=== PATIENT | male | born 1955 | race African-American/Black ===

== ENCOUNTER → 2016-11-28 | Outpatient (CLI) | payer OTHER | LOC: RAD 08:07 | PROVIDERS: ATTEND Family Medicine | DX: R10.31 Right lower quadrant pain (principal); R31.9 Hematuria, unspecified; N28.89 Other specified disorders of kidney and ureter | CPT/HCPCS: 74178; Q9967 ==

== ENCOUNTER → 2016-12-05 | Outpatient (CLI) | payer OTHER | LOC: RAD 07:08 | PROVIDERS: ATTEND Family Medicine | DX: N28.89 Other specified disorders of kidney and ureter (principal); N28.1 Cyst of kidney, acquired | CPT/HCPCS: 76770 ==

== ENCOUNTER → 2016-12-14 | Outpatient (CLI) | payer OTHER | LOC: RAD 06:52 | PROVIDERS: ATTEND Family Medicine | DX: Z53.8 Procedure and treatment not carried out for other reasons (principal) ==

== ENCOUNTER → 2017-01-28 | Outpatient (CLI) | payer BC, OTHER ==
[~2017-01-28] MED LIST: CEPH-331 PO
[2017-01-28 17:39] VITALS: BP 104/73
--- NOTE | 2017-01-28 17:39 | Urgent Care T Sheet Gen (E) ---
Intake General Temperature (Fahrenheit): 98.1 Pulse: 98 Blood Pressure Systolic: 104 Blood Pressure Diastolic: 73 Respirations: 20 SPO2: 98% Chief Complaint: UC Ear/Nose/Throat Complaint Description of Symptoms This 61 y/o man is here today because of URI symptoms he has had for over 1 week. He is coughing and bringing up sputum. He also has had a lot of sinus congestion and headache. He has only used Jaki Mullen over the counter. His PCP is Dr. Atkins. He has not had fever but did feel chilled last night. Source: Patient Exam Limitations: No limitations History of Present Illness Onset & Duration: Days Timing: Still present Severity: Moderate Associated Symptoms: Cough, Headaches, Nasal congestion Recent Trauma: No Similar Sympotms Previously: No Allergies: Coded Allergies: No Known Drug Allergies (Unverified , 04/18/12) Respiratory Constitutional Symptoms: See HPI ChillsNo Fever EENTM: See HPI Nose CongestionNo Throat pain Respiratory: See HPI CoughNo Short of breath, No Wheezing Cardiovascular: No symptoms reported Gastrointestinal/Abdominal: No symptoms reported Genitourinary: No symptoms reported Musculoskeletal: No symptoms reported Skin: No symptoms reported Neurological: No symptoms reported Hematologic/Lymphatic: No symptoms reported Immunologic/Allergies: No symptoms reported All Other Systems Reviewed Remaining Systems: All other systems reviewed with negative findings Past Alnmzsm-Iaobec-Qvjlch Hx Patient's Social History Alcohol Use: Occasionally Uses Smoking Status: Never smoker Surgeries/Hospitalizations Hospitalization/Surgery Hx: RT FOOT, LT KNEE, CYST REMOVAL LT MIDDLE FINGER, NODULES IN THROAT NO PROBLEMS W/ANESTHESIA Respiratory Respiratory History: None Cardiovascular Cardiovascular History: None Neuro/Muscular Neuro/Muscular History: Arthirits, Back Problems Genitouinary Genitourinary History: None Gastrointestinal GI/Endocrine History: None Diabetes Diabetes: No Integumentary Integumentary History: None Cancer History of Cancer?: No Physical Exam Physical Exam General Appearance: WD/WN No apparent distress Eyes, Ears, Nose, Throat Ex: PERRL/EOMI Normal ENT inspection TMs normal Pharynx normal Neck Exam: Non tender Full range of motion Supple Normal inspection Normal thyroid Respiratory Exam: Chest non-tenderNo Lungs clear, No Normal breath sounds, No respiratory distress No accessory muscles used Rhonchi (noted in the upper lobes but the bases are clear. No wheezing heard.) Cardiovascular Exam: Regular rate, rhythm No edema No gallop No JVD No murmur Skin Exam: Normal color Warm/dry/intact No rashes No embolic lesions Neurologic/Psychiatric Exam: Oriented times 4 CN's II-X nml No motor deficits No sensory deficits Mood/affect nml Departure Urgent Care Impression Chief Complaint: UC Ear/Nose/Throat Complaint Impression: Primary Impression: Sinusitis Additional Impression: Cough Departure Disposition: 01 HOME OR SELF-CARE Condition: Stable Referrals: Jose Miguel Atkins MD (PCP) Additional Instructions: I have suggested he start Augmentin 875mg 1 po bid for 10 days. I have cautioned about possible diarrhea from this. Taking a probiotic could be helpful for that. Also, I would like for him to being Mucinex over the counter and to drink plenty of water daily to make that more effective. If he is not improved with symptoms by weeks end he is asked to follow up with . The patient was comfortable with the treatment plan as outlined. End of report . DOROTA STOCK January 28, 2017 17:39
== END ==
LOC: MHUC 17:04
PROVIDERS: ATTEND Physician Assistant Medical
DX: J32.9 Chronic sinusitis, unspecified (principal); R05 Cough
CPT/HCPCS: 99213